=== PATIENT | male | born 1985 | race Caucasian/White ===

== ENCOUNTER 2017-02-21 15:20 | Emergency (ER) | payer MEDICAID ==
[2017-02-21 15:26] VITALS: BP 106/58; PULSE 54; RESP 16; TEMP 98.6; O2SAT 96
[2017-02-21] MEDS ORDERED: TDAP ADULT 0.5 ML INJ (BOOSTRIX) IM ONE (15:57)
--- NOTE | 2017-02-21 16:03 | EDPHY ---
H & P Time Seen by Provider: 02/21/17 15:45 HPI/ROS: CHIEF COMPLAINT: Leg laceration HISTORY OF PRESENT ILLNESS: 31-year-old male with out-of-date tetanus sustained accidental laceration right anterior distal thigh from a chainsaw. Superficial. Able to fully extend at the knee. Denies foreign body sensation. Occurred shortly prior to arrival PHYSICAL EXAM (Prior to examination, patient consented to physical exam, hands were washed and my usual and customary physical exam procedures followed) 1) GENERAL: Well-developed, well-nourished, alert and oriented. Appears to be in no acute distress. 2) HEAD: Normocephalic 3) HEENT: sclera anicteric 4) LUNGS: Breathing comfortably. 5) SKIN: anterior distal thigh 4 cm well-demarcated superficial laceration 6) MUSCULOSKELETAL: flexion and extension at the knee is intact, no deficits able to hold resistance Smoking Status: Never smoked Constitutional: Initial Vital Signs Temperature (C) 37 C 02/21/17 15:24 Heart Rate 54 L 02/21/17 15:24 Respiratory Rate 16 02/21/17 15:24 Blood Pressure 106/58 L 02/21/17 15:24 O2 Sat (%) 96 02/21/17 15:24 O2 Delivery Mode Room Air Allergies/Adverse Reactions: No Known Allergies Allergy (Unverified 02/21/17 15:24) Home Medications: Medication Instructions Recorded Cephalexin [Keflex] 500 mg PO TID 5 Days cap 02/21/17 MDM/Departure - MDM Procedures: Procedure: Laceration repair. I explained the indications, risks and benefits for both laceration repair and anesthetic administration. Verbal consent was obtained from the patient . The laceration on the right anterior distal thigh was anesthetized using 0.5% bupivicaine with epinephrine . After anesthetic administered the patient was observed for a period of time and had no apparent adverse effects. The wound was cleaned, prepped, draped in normal sterile fashion and explored to its base. No foreign body seen, no foreign bodies palpated. There were no deep structures involved. No tendon injury was identified. The wound was repaired with 6 simple interrupted 4 0 Prolene sutures. The wound repair was simple. The procedure was performed by myself. Patient has been informed that scarring will occur, although efforts have been made to minimize this. Medications Given: Discontinued Medications Cephalexin HCl (Keflex) 500 mg PO EDNOW ONE PRN Reason: Protocol Stop: 02/21/17 16:06 Last Admin: 02/21/17 16:11 Dose: 500 mg Diphtheria/Tetanus/Acell Pertussis (Boostrix) 0.5 ml IM .ONCE ONE Stop: 02/21/17 15:58 Last Admin: 02/21/17 16:11 Dose: 0.5 ml ED Course/Re-evaluation: Care of patient under supervision of secondary supervising physician Dr Brewer . - Depart Disposition: Home, Routine, Self-Care Clinical Impression: Laceration of right thigh Qualifiers: Encounter type: initial encounter Qualified Code(s): S71.111A - Laceration without foreign body, right thigh, initial encounter Condition: Good Instructions: Care For Your Stitches (ED), Laceration (ED) Additional Instructions: Return to the ER if you develop redness, swelling, discharge, warmth to the wound, red streaks going up your leg, or any other symptoms that concern you. Prescriptions: Cephalexin [Keflex] 500 mg PO TID 5 Days cap Referrals: Return, to the ER in 14 days for suture removal [Other] - As per Instructions
[2017-02-21] MEDS ORDERED: CEPHALEXIN 500 MG CAP PO ONE (16:05)
== END 2017-02-21 16:35 | disposition home or self-care (01) ==
PROC: 0HQHXZZ Repair Right Upper Leg Skin, External Approach (ICD-10-PCS; principal; 2017-02-21)
DX: S71.111A Laceration without foreign body, right thigh, initial encounter (principal); W29.3XXA Contact with powered garden and outdoor hand tools and machinery, initial encounter; Z23 Encounter for immunization